=== PATIENT | male | born 1995 | race Caucasian/White ===

== ENCOUNTER 2016-08-28 12:02 | Emergency (ER) | payer OTHER ==
[2016-08-28 14:10] LABS: HEMOGLOBIN 15.7 gm/dl (14.0-17.5); RED BLOOD COUNT 5.41 M/UL (4.20-5.50); WHITE BLOOD COUNT 16.9 K/UL (4.5-11.0)
[2016-08-28 14:24] LABS: BUN/CREATININE RATIO 15 (0-10)
== END 2016-08-28 15:25 | disposition home or self-care (01) ==
LOC: ER1 12:02
PROVIDERS: Physician Assistant
DX: B34.9 Viral infection, unspecified (principal); T14.8 Other injury of unspecified body region; D72.829 Elevated white blood cell count, unspecified; W57.XXXA Bitten or stung by nonvenomous insect and other nonvenomous arthropods, initial encounter
CPT/HCPCS: 71020; 80053; 85025; 86618; 87040; 87081; 87880; 99285